=== PATIENT | male | born 1975 ===

== ENCOUNTER 2017-11-20 18:07 | Emergency (ER) | payer BC ==
[2017-11-20 18:29] VITALS: BMI 23.8
--- NOTE | 2017-11-20 18:37 | ED PDOC ---
Arrival/HPI - General Time Seen by Provider: 11/20/17 18:18 Historian: Patient - History of Present Illness Narrative History of Present Illness (Text): 11/20/17 18:15 A 42 y/o M with no significant past medical history presents to the emergency department complaining of right foot pain for the past 2 days. Patient reports swelling is painful on ambulation with passive movement. Patient notes he had an episode of similar symptoms near his left great toe several months ago. Patient reports he was diagnosed with gout by PMD but is unable to recall definitively. Patient denies taking any medication for pain. Patient denies any fever, chills, chest pain, shortness of breath, nausea, vomiting, diarrhea, urinary symptoms, back pain, neck pain, headache, dizziness, or any other complaints. NO PMD Time/Duration: Other (2 days ) Symptom Onset: Gradual Symptom Course: Intermittent Quality: Aching Severity Level: Mild Activities at Onset: Light Context: Home Past Medical History - Provider Review Nursing Documentation Reviewed: Yes - Travel History Have you recently traveled outside [place] w/in the past 3 mons?: No Family/Social History - Physician Review Nursing Documentation Reviewed: Yes Family/Social History: Unknown Family HX Allergies/Home Meds Allergies/Adverse Reactions: Allergies No Known Allergies Allergy (Unverified 11/20/17 18:27) Review of Systems - Physician Review All systems were reviewed & negative as marked: Yes - Review of Systems Constitutional: absent: Fevers, Night Sweats Respiratory: absent: SOB Cardiovascular: Other (right ankle pain). absent: Chest Pain Gastrointestinal: absent: Diarrhea, Nausea, Vomiting Genitourinary Male: absent: Urinary Output Changes Musculoskeletal: absent: Back Pain Skin: Skin Lesions (Bump noted on R heel) Neurological: absent: Headache, Dizziness Physical Exam Vital Signs Reviewed: Yes Vital Signs Temp Pulse Resp BP Pulse Ox 11/20/17 21:18 72 17 136/71 99 11/20/17 20:27 98.7 F 64 18 135/95 H 100 Temperature: Afebrile Blood Pressure: Hypertensive Pulse: Regular Respiratory Rate: Normal Appearance: Positive for: Well-Appearing, Non-Toxic, Comfortable Pain Distress: None Mental Status: Positive for: Alert and Oriented X 3 - Systems Exam Head: Present: Atraumatic, Normocephalic Pupils: Present: PERRL Extroacular Muscles: Present: EOMI Conjunctiva: Present: Normal Mouth: Present: Moist Mucous Membranes Neck: Present: Normal Range of Motion Respiratory/Chest: Present: Clear to Auscultation, Good Air Exchange. No: Respiratory Distress, Accessory Muscle Use Cardiovascular: Present: Regular Rate and Rhythm, Normal S1, S2. No: Murmurs Abdomen: No: Tenderness, Distention, Peritoneal Signs Back: Present: Normal Inspection Upper Extremity: Present: Normal Inspection. No: Cyanosis, Edema Lower Extremity: Present: NORMAL PULSES (pulse equal and present ), Tenderness, Swelling (soft tissue swelling noted to achilles tendon of right foot ). No: Normal Inspection, Edema, Cyanosis, Normal ROM, Precious's Sign, Erythema, Deformity, Temperature Abnormalties, Neurovascularly Intact, Capillary Refill < 2 s Neurological: Present: GCS=15, CN II-XII Intact, Speech Normal Skin: Present: Warm, Dry, Normal Color. No: Rashes Psychiatric: Present: Alert, Oriented x 3, Normal Insight, Normal Concentration Medical Decision Making ED Course and Treatment: 11/20/17 18:20 Impression: A 43 year old presenting to the emergency department with right foot pain. Differential Diagnosis included but are not limited to: -Gout -Bursitis -Contusion Plan: -- CMP -- Uric Acid level -- CBC -- XRay Right ankle 3 views -- Urinalysis -- Reassess and disposition Prior Visits: Notes and results from previous visits were reviewed. Progress Notes: 11/20/17 21:06 Labs reviewed. Slight white count noted. Patient denies fevers and chills most likely due to acute gouty arthritis. Patient updated on findings, will be given script and advised to follow up with PMD. Patient understands and is stable for discharge. - Lab Interpretations Lab Results: 11/20/17 20:09 11/20/17 20:09 Lab Results 11/20/17 20:09: Sodium 144, Potassium 4.3, Chloride 105, Carbon Dioxide 26, Anion Gap 17, BUN 20, Creatinine 0.8, Est GFR ( Amer) > 60, Est GFR (Non- Af Amer) > 60, Random Glucose 96, Uric Acid 7.1, Calcium 9.1, Total Bilirubin 0.4, AST 29, ALT 43, Alkaline Phosphatase 93, Total Protein 7.2, Albumin 4.3, Globulin 2.9, Albumin/Globulin Ratio 1.5 08/23/18 20:09: WBC 11.8 H, RBC 4.42, Hgb 14.0, Hct 42.2, MCV 95.5, MCH 31.7, MCHC 33.2, RDW 13.1, Plt Count 317, MPV 8.5, Gran % 65.4, Lymph % (Auto) 24.9, [place] % (Auto) 7.4 H, Eos % (Auto) 2.0, Baso % (Auto) 0.3, Gran # 7.69 H, Lymph # (Auto) 2.9, [place] # (Auto) 0.9 H, Eos # (Auto) 0.2, Baso # (Auto) 0.03 - RAD Interpretation Radiology Orders: 11/20/17 18:27 ANKLE RIGHT 3 VIEWS ROUTINE [RAD] Stat - Scribe Statement The provider has reviewed the documentation as recorded by the Scribjeremiah Vinson All medical record entries made by the Scribe were at my direction and personally dictated by me. I have reviewed the chart and agree that the record accurately reflects my personal performance of the history, physical exam, medical decision making, and the department course for this patient. I have also personally directed, reviewed, and agree with the discharge instructions and disposition. Disposition/Present on Arrival - Present on Arrival Any Indicators Present on Arrival: No History of DVT/PE: No History of Uncontrolled Diabetes: No Urinary Catheter: No History of Decub. Ulcer: No - Disposition Have Diagnosis and Disposition been Completed?: Yes Diagnosis: Foot contusion, Gout Disposition: HOME/ ROUTINE Disposition Time: 21:01 Patient Plan: Discharge Condition: STABLE Discharge Instructions (ExitCare): Lifestyle Changes to Manage Gout, Gout (DC) Prescriptions: Indomethacin [Indocin] 50 mg PO Q8H 3 Days #24 cap Referrals: FAMILY PROVIDER,NO [Primary Care Provider] - Follow up with primary Forms: [employer] (Polish), WORK NOTE
[2017-11-20 20:20] LABS: BASO # 0.03 K/mm3 (0.0-2.0); BASO % 0.3 % (0.0-3.0); EOS # 0.2 (0.0-0.7); GRAN # 7.69 (1.4-6.5); GRAN % 65.4 % (50.0-68.0); LYMPH # 2.9 (1.2-3.4); LYMPH % 24.9 % (22.0-35.0); MEAN CELL VOLUME 95.5 fl (80.0-105.0); MEAN CORPUSCULAR HEMOGLOBIN 31.7 pg (25.0-35.0); MEAN CORPUSCULAR HGB CONC 33.2 g/dl (31.0-37.0); MEAN PLATELET VOLUME 8.5 fl (7.0-11.0); MONO # 0.9 (0.1-0.6); MONO % 7.4 % (1.0-6.0); RBC 4.42 10^6/uL (3.5-6.1); RED CELL DISTRIBUTION WIDTH 13.1 % (11.5-14.5); WHITE BLOOD COUNT 11.8 10^3/ul (4.5-11.0)
[2017-11-20 20:28] VITALS: TEMP 98.7
[2017-11-20 20:34] LABS: ALB/GLOB RATIO 1.5 (1.1-1.8); ALBUMIN 4.3 g/dL (3.0-4.8); ALT/SGPT 43 U/L (7-56); AST/SGOT 29 U/L (17-59); BLOOD UREA NITROGEN 20 mg/dL (7-21); CALCIUM 9.1 mg/dL (8.4-10.5); GFR NON-AFRICAN AMERICAN > 60; URIC ACID 7.1 mg/dL (3.5-8.5)
[2017-11-20 23:40] VITALS: BP 136/71; PULSE 72; RESP 17; O2SAT 99
--- NOTE | 2017-11-21 08:08 | RAD ---
Date of service: 11/20/2017 PROCEDURE: Right Ankle Radiographs. HISTORY: swelling noted to back of ankle COMPARISON: None FINDINGS: BONES: Bone alignment is normal. There is no acute displaced fracture or bone destruction. Mild periarticular bone demineralization. There is a prominent dorsal calcaneal enthesophyte. JOINTS: Normal. No osteoarthritis. Ankle mortise maintained. Talar dome intact SOFT TISSUES: Mild soft tissue swelling within cistern of tendo-Achilles. OTHER FINDINGS: None. IMPRESSION: No acute fracture or dislocation. Prominent dorsal calcaneal enthesophyte. Mild soft tissue swelling at the insertion of the tendo-Achilles.
== END 2017-11-20 21:18 | disposition home or self-care (01) ==
LOC: ED 18:07
DX: M10.9 Gout, unspecified (principal); S90.31XA Contusion of right foot, initial encounter; X58.XXXA Exposure to other specified factors, initial encounter